=== PATIENT | male | born 1955 | race Caucasian/White ===

== ENCOUNTER → 2017-08-06 | Day surgery (SDC) | payer BC ==
[~2017-08-06] MED LIST: Cyclopentolate 1% Opth Drop 2 ML BOT L EYE SCH; Cyclopentolate 1% Opth Drop 2 ML BOT ONE; Diprivan 20 ML ONE; Fentanyl 100 MCG/2 ML VIAL ONE; Fluorouracil 100 MG, Enoxaparin Sodium 25 MG, EPINEPHrine 0.3 MG in Ophthalmic Irrigati... IVPB SCH; Lidocaine 1% PF 5 ML VIAL ONE; Lidocaine 2% PF 5 ML VIAL ONE; Midazolam HCl 2 mg/2 ml Vial ONE; Ondansetron HCl/PF 4 MG/2 ML Vial ONE; Phenylephrine HCl 2.5% Ophth Soln 5 ML BOT L EYE SCH; Phenylephrine HCl 2.5% Ophth Soln 5 ML BOT ONE; Propofol 200 MG/20 ML VIAL ONE
--- NOTE | 2017-08-06 20:35 | OP ---
DATE OF SURGERY: 08/06/2017 PREOPERATIVE DIAGNOSIS: Tractional retinal detachment, left eye. POSTOPERATIVE DIAGNOSIS: Tractional retinal detachment, left eye. PROCEDURE: Pars plana vitrectomy, tractional retinal detachment repair, left eye. SURGEON: Prieto Shelton M.D. ANESTHESIA: General endotracheal. PROCEDURE IN DETAIL: The patient was identified in the preoperative holding area. Appropriate infor med consent for the planned surgical procedure on the left eye had been obtained. The patient was tr ansported to the operative suite where appropriate cardiopulmonary monitoring was established. Gener al endotracheal anesthesia was initiated. Local anesthesia was obtained using retrobulbar and modifi ed Van Lint lid block using 50/50 mixture of 4% lidocaine and 0.75% bupivacaine. The patient was pre pped and draped in the usual sterile manner for ophthalmic surgery on the left eye. Lid speculum was placed in the left eye. The 25-gauge trocars were placed in conjunctiva and sclera supratemporally, inferotemporally, and supranasally. Additional 25-gauge trocars were placed inferotemporally, infer onasally. Light pipe and vitreous cutter were inserted into the eye. Attention was turned to the pe ripheral retina. Careful inferior trimming of the vitreous base was performed. Inferior retinectomy was created around the areas of holes inferiorly. Indocyanine green dye was infused onto the food service director ior pole x1, identifying the internal epiretinal membrane. This was elevated using a Jona membrane s craper peeled across the macula using end-gripping forceps. No further peeling of the membrane into the periphery was possible. The inferior retinectomy was enlarged until the retina flattened under a ir. Laser was placed in all inferior and temporal areas bordering the retinal detachment. Ten minut es were allowed for fluid to drain posteriorly, fluid was drained from the subretinal space. Using t he previously placed retinal drain superior temporally. Silicone oil was infused into the eye and al l sclerotomy was sutured closed. Retrobulbar Kenalog and subconjunctival Ancef were placed. Atropin e and antibiotic ointment were placed, and the eye was patched and shielded. The patient was taken t o the postoperative recovery unit in good condition having suffered no immediate perioperative compli cations. The patient was awakened and taken to the postoperative recovery unit in good condition. T he patient was advised to position right side down, and follow up in the morning with Dr. Shelton.
== END ==
LOC: SDC 15:56
PROVIDERS: ATTEND Ophthalmology Retina Specialist
PROC: 089 Eye, Drainage (ICD-10-PCS; principal; 2017-08-06)
DX: H33.42 Traction detachment of retina, left eye (principal)
CPT/HCPCS: C1814; J0171; J1650; J2001; J2250; J2405; J2704; J3010; J9190

== ENCOUNTER 2017-10-22 16:31 | Outpatient (CLI) | payer BC ==
[2017-10-22 17:47] LABS: Hemoglobin 15.9 g/dL (14.0-18.0); Mean Corpuscular Hemoglobin 32.6 pg (27.0-31.0); Mean Corpuscular Volume 90.4 fl (80.0-94.0); Mean Platelet Volume 8.7 fL (7.4-10.4); Platelet Count 150 thou/uL (130-400); RBC Distribution Width 11.9 % (11.5-14.5); Red Blood Cell (RBC) Count 4.89 mill/uL (4.70-6.10); White Blood Cell (WBC) Count 5.3 thou/uL (4.8-10.8)
[2017-10-22 17:55] LABS: INR-International Normal Ratio 1.1; PTT 30.4 SEC (22.9-36.1); Prothrombin Time 14.4 SEC (12.0-14.7)
[2017-10-22 17:58] LABS: Bilirubin Negative (Negative); Blood, Urine Small (Negative); Clarity CLEAR (Clear); Glucose, Urine (Dipstick) Negative (Negative); Leukocyte Negative (Negative); Nitrite Negative (Negative); Protein, Urine (Dipstick) Negative (Neg-Trace); Specific Gravity, Urine 1.025 (1.002-1.036); Urobilinogen 0.2 mg/dL (0.2-1.0)
[2017-10-22 17:59] LABS: Bacteria/HPF None Seen HPF (None Seen); Hyaline Casts/LPF 0-3 HYALINE CAST LPF (0-3 Hyaline); Squamous Epithelial 0-3 HPF (0-3)
[2017-10-22 18:15] LABS: Anion Gap 15 mmol/L (10-20); BUN (Urea Nitrogen) 13 mg/dL (8.4-25.7); Calc. Creatinine Clearance 0 mL/min (70-130); Calcium 9.6 mg/dL (7.8-10.44); Carbon Dioxide 23 mmol/L (22-29); Chloride 104 mmol/L (98-107); Estimated GFR-MDRD Greater than 90; Glucose 123 mg/dL (70-105); Potassium 3.9 mmol/L (3.5-5.1); Sodium 138 mmol/L (136-145)
== END 2017-10-22 16:32 | disposition home or self-care (01) ==
LOC: LABBT 16:31
PROVIDERS: ATTEND Urology
DX: Z01.818 Encounter for other preprocedural examination (principal); C67.9 Malignant neoplasm of bladder, unspecified
CPT/HCPCS: 80048; 81001; 85027; 85610; 85730; 86850; 86900; 86901; 87086; 93005; 93010

== ENCOUNTER 2017-10-29 08:35 | Day surgery (SDC) | payer BC ==
[2017-10-22 16:47] VITALS: BMI 30.9
[2017-10-29] MEDS ORDERED: Levofloxacin 500 mg/D5W 100 ml Premix Bag ONE (08:41)
[2017-10-29] MEDS ORDERED: HYDROmorphone 0.5 MG/0.5 ML SYRINGE ONE (08:57)
[2017-10-29] MEDS ORDERED: Fentanyl 250 MCG/5 ML VIAL ONE (08:57)
[2017-10-29] MEDS ORDERED: Midazolam HCl 2 mg/2 ml Vial ONE (10:58)
[2017-10-29] MEDS ORDERED: B & O ONE (11:42)
--- NOTE | 2017-10-29 12:49 | OP ---
DATE OF PROCEDURE: 10/29/2017 SERVICE: Urology. SURGEON: Luis Fernando Ledesma M.D. PREOPERATIVE DIAGNOSIS: Bladder cancer. POSTOPERATIVE DIAGNOSIS: Bladder cancer. PROCEDURE PERFORMED: Cystoscopy with bladder biopsy. INDICATIONS FOR PROCEDURE: Mr. Medina is a 61-year-old white male who has a history of high-grade ur othelial carcinoma, currently on BCG maintenance therapy. His cytology was atypical and the patient had a suspicious lesion within the bladder, which could not be reliably distinguished from carcinoma in situ. I recommended the patient come in for cystoscopy, bladder biopsies and fulguration of the l esion. Risks and benefits of the surgery were discussed and he has agreed to proceed forward. DESCRIPTION OF PROCEDURE: After identification of armband and verification of consent, the patient w as brought back to the operating room where he underwent general anesthesia with endotracheal intubat ion, he was then placed in dorsal lithotomy position and prepped and draped in usual sterile fashion. After appropriate timeout, a lubricated 22 [place] rigid cystoscope was introduced per urethra into the bladder. Attention was turned to the left posterior bladder where the lesion of concern was note d. The cold cup biopsy forceps were used to biopsy the entire segment of the erythematous linear les ion until the vast majority of lesion had been removed. These were all submitted for routine patholo gic evaluation. The entire area was then fulgurated with the Bugbee electrode until all erythematous tissue and a rim of healthy urothelium around that was entirely fulgurated to ensure complete destru ction of the lesion. Upon completion, there was good hemostasis and no evidence of bleeding. The bl adder was emptied, the cystoscope removed. A 16-A B&O suppository was placed in the patient's rectum . He was then awakened and taken to PACU for recovery in stable condition. COMPLICATIONS: None. ESTIMATED BLOOD LOSS: Minimal. RETAINED TUBES AND DRAINS: None. SPECIMENS: Bladder biopsy x3. DISPOSITION: The patient will be discharged home and follow up with me in approximately 1-2 weeks fo r a postop check and pathology results.
[2017-10-29] MEDS ORDERED: Ondansetron HCl/PF 4 MG/2 ML Vial ONE (14:45)
[2017-10-29] MEDS ORDERED: Lidocaine 1% PF 5 ML VIAL ONE (14:45)
[2017-10-29] MEDS ORDERED: Glycopyrrolate 0.2 MG/ML 5 ML SYRINGE ONE (14:45)
[2017-10-29] MEDS ORDERED: Ketorolac Tromethamine 30 MG/ML VIAL ONE (14:45)
[2017-10-29] MEDS ORDERED: Propofol 200 MG/20 ML VIAL ONE (14:45)
== END 2017-10-29 14:50 | disposition home or self-care (01) ==
LOC: SDC 08:35
PROVIDERS: ATTEND Urology
PROC: 0TBB8ZX Excision of Bladder, Via Natural or Artificial Opening Endoscopic, Diagnostic (ICD-10-PCS; principal; 2017-10-29)
DX: N30.00 Acute cystitis without hematuria (principal); N30.20 Other chronic cystitis without hematuria; C67.9 Malignant neoplasm of bladder, unspecified; N40.0 Benign prostatic hyperplasia without lower urinary tract symptoms; R73.03 Prediabetes; D63.0 Anemia in neoplastic disease; Z79.51 Long term (current) use of inhaled steroids; Z79.52 Long term (current) use of systemic steroids; Z79.899 Other long term (current) drug therapy
CPT/HCPCS: 88305; J1170; J1885; J1956; J2001; J2250; J2405; J2704; J3010